=== PATIENT | female | born 1985 | race Caucasian/White ===

== ENCOUNTER 2016-12-23 16:20 | Emergency (ER) | payer OTHER ==
[~2016-12-23] VITALS: Ht 162.6 cm; Wt 108.9 kg
[~2016-12-23 16:20] MED LIST: AMOXICILLIN500 M1 PO; AMOXIL500 MG PO; BACTRIM DS 8001 TAB PO; LOTRIMIN ULTRA12 GM TOP; NICOTINE21 MG/24 H TOP; NORCO 325 MG-51 TAB PO; PERCOCET 325 MG-5 MG PO; PERCOCET 325 MG1 TA2 PO; TYLENOL COLD MU PO
[2016-12-23 16:30] VITALS: BP 140/86
[2016-12-23 16:56] LABS: ABSOLUTE BASOPHIL COUNT 0.1 /CUMM (0.0-0.2); ABSOLUTE EOSINOPHIL COUNT 0.6 /CUMM (0.0-0.7); ABSOLUTE MONOCYTE COUNT 0.7 /CUMM (0.10-0.60); EOSINOPHIL % 5.6 % (0-5); GRANULOCYTE % 58.1 % (42.2-75.2); HEMATOCRIT 42.4 % (37-47); MEAN CORPUSCULAR HGB 31.7 PG (27.0-31.0); MEAN CORPUSCULAR HGB CONC 35.6 G/DL (33.0-37.0); MEAN PLATELET VOLUME 8.4 FL (7.4-10.4); PLATELET COUNT 291 /CUMM (130-400); RBC DISTRIBUTION WIDTH 12.7 % (11.5-14.5); RED BLOOD CELL CT 4.76 /CUMM (4.20-5.40); WHITE BLOOD CELL COUNT 10.4 /CUMM (4.8-10.8)
--- NOTE | 2016-12-23 17:17 | RADIOLOGY REPORT ---
EXAMINATION: XR CHEST CLINICAL INFORMATION: Heart palpitations. COMPARISON: Chest x-ray 06/19/2014 TECHNIQUE: 2 views of the chest were obtained. FINDINGS: No significant abnormality is noted involving the heart, lungs, mediastinum, bony thorax or soft tissues. IMPRESSION: Unremarkable examination.
--- NOTE | 2016-12-23 19:12 | ED CARDIAC/CP/PALPITATIONS ---
History of Present Illness General Chief Complaint: General Adult Stated Complaint: PT STATES HEART SOMETIMES FEELS LIKE IT IS RACING Source: patient Exam Limitations: no limitations Vital Signs & Intake/Output Vital Signs & Intake/Output Vital Signs Date Time Temp Pulse Resp B/P Pulse O2 O2 Flow FiO2 Ox Delivery Rate 12/23 1805 Room Air 12/23 1630 99.1 98 20 140/86 99 Room Air Room Air Allergies Coded Allergies: NO KNOWN ALLERGIES (04/07/11) Reconcile Medications No Known Home Medications Triage Note: PT TO ED WITH C/O "SOMETIMES I FEEL LIKE MY HEART IS RACING, LAST A COUPLE OF MINUTES". PT STATING "IT HAPPENED A COUPLE OF TIMES IN THE LAST WEEK OR SO. Triage Nurses Notes Reviewed? yes : No Patient currently breastfeeds: No HPI: Ms. Goncalves is a 31 yo female w/ PMH of pneumonia obesity presenting to the emergency department for palpitations patient states that the palpitations have been ongoing for the past week. Patient denies any chest pain. She does endorse some shortness of breath but none with exertion. His increased stress lately and she feels this might be worsening over the past few months. She has self diagnosed herself with anxiety. She denies any fevers or chills. No dizzines, nausea, vomiting, diarrhea or abdominal pain. (JUANA MEADOWS MD) Past History Travel History Traveled to [place] past 21 day No Medical History Any Pertinent Medical History? 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 No (JUANA MEADOWS MD) Review of Systems Review of Systems Constitutional: Reports: see HPI. Comments Review of systems: See HPI, All other systems negative. Constitutional: no chills fever or weight loss HEENT: No visual changes, no sore throat, no congestion Cardiovascular: No chest pain, palpitation, orthopnea or ankle swelling Skin: no jaundice, no rashes. No lacerations. Respiratory: No dyspnea, cough, sputum or hemoptysis GI: No nausea, no vomiting : No dysuria, No hematuria Musculoskeletal: no back pain, no neck pain Neurologic: No numbness no confusion Psych: No stress anxiety or depression Heme/endocrine: No bruising, no bleeding, no polyuria or polydipsia Immunology: No splenectomy. (JUANA MEADOWS MD) Physical Exam Physical Exam Cardiovascular: regular rate/rhythm Comments: Well-developed well-nourished person in no acute distress HEENT: Normal EENT exam, extraocular motion intact, no nystagmus. Pupils equally round and reactive to light and accommodation. Nose is atraumatic. External auditory canal and Tympanic membranes clear. Pharynx normal. No swelling or edema. Neck: Supple, no lymphadenopathy, normal range of motion without pain or tenderness Back: Nontender, no CVA tenderness. Full range of motion Cardiovascular: Regular rate and rhythms no murmurs rubs or gallops, normal JVP Respiratory: Chest nontender. No respiratory distress.breath sounds clear to auscultation bilaterally Abdomen: Soft, nontender nondistended, no appreciable organomegaly. Normal bowel sounds. No ascites Extremity: No edema, no calf tenderness to palpation, normal and equal pulses. Neuro: Alert oriented x3, motor sensory normal, cranial nerves II through XII grossly intact. Skin: No appreciable rash on exposed skin, skin is warm and dry. Psych: Mood and affect is normal, memory and judgment is normal. Core Measures ACS in differential dx? Yes ASA ordered for poss ACS? No-ACS ruled out Severe Sepsis Present: No Septic Shock Present: No (JUANA MEADOWS MD) Progress Differential Diagnosis: AMI, CHF/pulm edema, hyperkalemia, hypovolemia, hyperthyroid, hyperventilation, pneumonia, respiratory failure, unstable angina, V-fib/V-Tach, WPW syndrome Plan of Care: Orders Procedure Date/time Status Add-on Test (ER Only) 12/23 1748 Active D-DIMER 12/23 1645 Complete TROPONIN LEVEL 12/23 1634 Complete COMPREHENSIVE METABOLIC PANEL 12/23 1634 Complete CBC WITHOUT DIFFERENTIAL 12/23 1634 Complete EKG 12/23 1633 Active Laboratory Tests 12/23/16 1645: Anion Gap 10, Estimated GFR > 60, BUN/Creatinine Ratio 14.3, Glucose 90, Calcium 9.3, Total Bilirubin 0.6, AST 24, ALT 52, Alkaline Phosphatase 81, Troponin I < 0.01, Total Protein 7.1, Albumin 3.9, Globulin 3.2, Albumin/Globulin Ratio 1.2, D-Dimer < 200, CBC w Diff NO MAN DIFF REQ, RBC 4.76, MCV 89.0, MCH 31.7 H, RDW 12.7, MPV 8.4, Gran % 58.1, Lymphocytes % 28.9, Monocytes % 6.4, Eosinophils % 5.6 H, Basophils % 1.0, Absolute Granulocytes 6.0, Absolute Lymphocytes 3.0, Absolute Monocytes 0.7 H, Absolute Eosinophils 0.6, Absolute Basophils 0.1, PUBS MCHC 35.6 Patient is a 31-year-old female with past medical history of obesity and pneumonia. Here today with increased palpitations. Vitals show heart rate of 98 with temperature of 99 1. Normal blood pressure 140/86. Patient is otherwise well-appearing. EKG is within normal limits normal sinus rhythm at a rate of 94. No evidence of EKG changes or acute ischemia. Unlikely ACS given patient's age and clinical presentation. This is likely related to anxiety as the patient does states she's had increased stress over the past few weeks. We will obtain basic labs to assess for possible electrolyte abnormality. Will obtain chest x-ray to assess for volume overload and overall cardiac size. Will obtain one screening troponin however it is unlikely that this episode of palpitations has been ongoing for 3 weeks is related to an acute OK. Therefore there is no indication to repeat troponin. Patient is chest pain-free at this point in time and has been over the past few weeks. Labs essentially unremarkable. Negative troponin. This is likely an anxiety component. Patient recommended to drink plenty of fluids and stay well hydrated to prevent dehydration as a possible cause of her tachycardia. Patient amenable to plan. Will follow up with her primary care doctor as an outpatient. Discussed family history patient has no significant family history of acute MIs or at an early age. (DORI GREEN,JUANA) Diagnostic Imaging: Viewed by Me: Radiology Read. Discussed w/RAD: Radiology Read. CXR Impression: no acute abnormality, no infiltrates, normal size heart, normal mediastinum Initial ED EKG: normal axis, normal intervals, normal p-waves, normal QRS complex, normal sinus rhythm, no ST T wave changes (JUANA MEADOWS MD) Departure Departure Time of Disposition: 1909 Disposition: HOME OR SELF CARE Condition: Stable Clinical Impression Primary Impression: Palpitations Referrals: UNKNOWN (PCP/Family) Additional Instructions: Follow-up with your primary care doctor as needed for palpitations. It may be helpful for you to have a stress test done as an outpatient. Please stop smoking as that will help to decrease your shortness of breath. Departure Forms: Customer Survey General Discharge Information Prescriptions: Current Visit Scripts No Known Home Medications (JUANA MEADOWS MD) Resident Co-Sign Statement Statement: ED Attending supervision documentation- [] I saw and evaluated the patient. I have also reviewed all the pertinent lab results and diagnostic results. I agree with the findings and the plan of care as documented in the Resident's documentation. [X] I have reviewed the ED Record and agree with the Resident's documentation. [] Additions or exceptions (if any) to the Resident's note and plan are summarized below: [] (BRAYAN HARDY DO) Critical Care Note Critical Care Note Critical Care Time: non-applicable (JUANA MEADOWS MD)
== END 2016-12-23 19:14 ==
LOC: ERH 16:20
PROVIDERS: Emergency Medicine
DX: R00.2 Palpitations (principal)
CPT/HCPCS: 93005; 93010

== ENCOUNTER 2017-03-01 09:43 | Emergency (ER) | payer OTHER ==
[~2017-03-01] VITALS: Ht 162.6 cm; Wt 104.3 kg
--- NOTE | 2017-03-01 10:01 | ED GI/GU/ABDOMINAL COMPLAINT ---
History of Present Illness General Chief Complaint: Abdominal Pain/Flank Pain Stated Complaint: LUQ ABD PAIN, RADIATING TO BACK Source: patient Exam Limitations: no limitations Vital Signs & Intake/Output Vital Signs & Intake/Output Vital Signs Date Time Temp Pulse Resp B/P B/P Pulse O2 O2 Flow FiO2 Mean Ox Delivery Rate 03/01 1316 98.3 94 15 110/74 100 Room Air 03/01 1034 100 Room Air 03/01 0949 98.3 96 20 106/69 98 Allergies Coded Allergies: NO KNOWN ALLERGIES (04/07/11) Reconcile Medications No Known Home Medications Triage Note: PT C/O LUQ PAIN X 2 WEEKS. PT STATES SHE THOUGHT IT WAS GAS. PT STATES SHE HAS ISSUES WITH HER GALLBLADDER. PT DENIES N/V BUT STATES + DIARRHEA Triage Nurses Notes Reviewed? yes ? N Is pt currently ? No Duration: waxing and waning (FEW MONTHS) Timing: recent history Location: left flank Radiation: back Associated Symptoms: NAUSEA, BLOOD IN URINE HPI: 31 year female presents to [facility] ER for chief complaint of left flank pain on and off for the past few months. Pain radiates to the left back. Patien reports mild associated nausea, no vomiting. Denies any fever or chills. Admits to blood in urine although her last menstrual period ended one week ago. Denies vaginal discharge or chance for . No chest pain or shortness of breath. Denies any rash or trauma. No history of similar symptoms in the past before. Past History Travel History Traveled to [place] past 21 day No Medical History Any Pertinent Medical History? see below for history Neurological: NONE EENT: NONE Cardiovascular: NONE Respiratory: pneumonia Gastrointestinal: NONE Hepatic: NONE Renal: NONE Musculoskeletal: NONE Psychiatric: NONE Endocrine: NONE Blood Disorders: NONE Cancer(s): NONE AUTO HIKER/Reproductive: NONE Other Medical Hx: Obesity Surgical History Surgical History: cholecystectomy, Psychosocial History What is your primary language Puerto Rican Tobacco Use: Current Daily Use Daily Tobacco Use Amount/Type: => 5 Cigarettes daily ETOH Use: occasional use Illicit Drug Use: denies illicit drug use Family History Hx Contributory? No Review of Systems Review of Systems Constitutional: Denies: chills, fever. EENTM: Reports: no symptoms. Respiratory: Reports: no symptoms. Cardiovascular: Reports: no symptoms. GI: Reports: abdominal pain. Genitourinary: Reports: no symptoms. Musculoskeletal: Reports: back pain. Skin: Reports: no symptoms. Neurological/Psychological: Reports: no symptoms. Hematologic/Endocrine: Denies: bruising, bleeding, polyuria, polydipsia. Immunologic/Allergic: Reports: no symptoms. All Other Systems: Reviewed and Negative Physical Exam Physical Exam General Appearance: well developed/nourished, alert, awake, anxious, mild distress, obese Head: atraumatic, normal appearance Eyes: Bilateral: normal appearance, PERRL, EOMI. Ears, Nose, Throat, Mouth: hearing grossly normal, moist mucous membrane Neck: normal inspection, supple, full range of motion Respiratory: normal breath sounds, chest non-tender, no respiratory distress Cardiovascular: regular rate/rhythm Peripheral Pulses: 2+ radial (R), 2+ radial (L) Gastrointestinal: normal bowel sounds, soft, tenderness (mild left flank) Back: normal inspection, normal range of motion Extremities: normal range of motion Neurologic/Psych: no motor/sensory deficits, awake, alert, oriented x 3 Skin: intact, normal color, warm/dry Core Measures ACS in differential dx? No Severe Sepsis Present: No Septic Shock Present: No Progress Differential Diagnosis: kidney stone, pancreatitis, PUD/GERD, UTI/pyelo Plan of Care: Orders Procedure Date/time Status URINE 03/01 1020 Complete URINALYSIS 03/01 1020 Complete EKG 03/01 1018 Active LIPASE 03/01 1013 Complete D-DIMER 03/01 1013 Complete COMPREHENSIVE METABOLIC PANEL 03/01 1013 Complete CBC WITHOUT DIFFERENTIAL 03/01 1013 Complete Laboratory Tests 03/01/ 1036: Anion Gap 10, Estimated GFR > 60, BUN/Creatinine Ratio 14.3, Glucose 84, Calcium 9.5, Total Bilirubin 0.7, AST 26, ALT 48, Alkaline Phosphatase 80, Total Protein 7.2, Albumin 4.0, Globulin 3.2, Albumin/Globulin Ratio 1.3, Lipase 121, D-Dimer High Sensitivty < 200, CBC w Diff NO MAN DIFF REQ, RBC 4.80, MCV 91.2, MCH 30.9, RDW 12.6, MPV 8.1, Gran % 61.9, Lymphocytes % 27.2, Monocytes % 5.6, Eosinophils % 5.0, Basophils % 0.3, Absolute Granulocytes 7.9 H, Absolute Lymphocytes 3.5 H, Absolute Monocytes 0.7 H, Absolute Eosinophils 0.6, Absolute Basophils 0, PUBS MCHC 33.8, Urinalysis LIGHT H, Urine Color YEL, Urine Clarity CLEAR, Urine pH 6.0, Ur Specific [place] 1.025, Urine Protein NEG, Urine Ketones NEG, Urine Nitrite NEG, Urine Bilirubin NEG, Urine Urobilinogen 0.2, Ur Leukocyte Esterase NEG, Ur Microscopic SEDIMENT EXAMINED, Urine RBC 3-5, Urine WBC 1-3 H, Ur Epithelial Cells FEW, Urine Bacteria RARE H, Urine Mucus FEW, Urine Hemoglobin LARGE H, Urine Glucose NEG, Urine Test NEGATIVE Diagnostic Imaging: Viewed by Me: Ultrasound. Discussed w/RAD: Ultrasound. Initial ED EKG: NSR Prior EKG: unchanged Comments: PATIENT: JM JOSE PRESENT AGE: 31 PATIENT ACCOUNT NO: [id number] : 86 LOCATION: [facility] ORDERING PHYSICIAN: DOROTEO SHAY MD SERVICE DATE: 03/01/17 EXAM TYPE: US - US-RENAL/KIDNEY EXAMINATION: US RETROPERITONEAL COMPLETE (RENAL) CLINICAL INFORMATION: Left-sided flank pain. Hematuria. Evaluate for kidney stone. COMPARISON: CT scan of the abdomen and pelvis dated 09/27/2013. TECHNIQUE: Real-time imaging of the kidneys and bladder. FINDINGS: RIGHT KIDNEY: 10.4 x 4.6 x 4.5 cm (SAG x AP x TRV). The kidney is normal in size, contour, and echogenicity. Renal cortical thickness is normal. No calculi or focal parenchymal lesions. No hydronephrosis. LEFT KIDNEY: 11.2 x 5.4 x 5.1 cm (SAG x AP x TRV). The kidney is normal in size, contour, and echogenicity. Renal cortical thickness is normal. No focal parenchymal lesions. There is a 0.5 x 0.3 x 0.3 cm echogenic nonobstructing mid left renal calcification. No hydronephrosis. BLADDER: Well-distended and normal. Bilateral ureteral jets are demonstrated. IMPRESSION: 1. 0.5 x 0.3 x 0.3 cm mid left renal nonobstructing calcification. 2. Otherwise unremarkable exam. DICTATED BY: CRYSTAL COLLAZO MD DATE/TIME DICTATED:03/01/17 1240 LOOPER FIXER:FABIOLA DATE/TIME TRANSCRIBED:03/01/17 / 1240 CONFIDENTIAL, DO NOT COPY WITHOUT APPROPRIATE AUTHORIZATION. <Electronically signed in Other Vendor System> SIGNED BY: CRYSTAL COLLAZO MD 1241 Departure Departure Time of Disposition: 1310 Disposition: HOME OR SELF CARE Condition: Stable Clinical Impression Primary Impression: Renal stone Referrals: HOSEA GREEN,BRYCE UNKNOWN (PCP/Family) Additional Instructions: Please follow up with urology specialist listed. Take Motrin or Tylenol as needed for pain. Return for any worsening symptoms. Departure Forms: Customer Survey General Discharge Information Prescriptions: Current Visit Scripts No Known Home Medications
[2017-03-01 10:54] LABS: ABSOLUTE BASOPHIL COUNT 0 /CUMM (0.0-0.2); ABSOLUTE EOSINOPHIL COUNT 0.6 /CUMM (0.0-0.7); ABSOLUTE GRANULOCYTE CT 7.9 /CUMM (1.4-6.5); ABSOLUTE LYMPH COUNT 3.5 /CUMM (1.2-3.4); ABSOLUTE MONOCYTE COUNT 0.7 /CUMM (0.10-0.60); BASOPHIL % 0.3 % (0.0-2.0); GRANULOCYTE % 61.9 % (42.2-75.2); HEMATOCRIT 43.8 % (37-47); MEAN CORPUSCULAR HGB 30.9 PG (27.0-31.0); MEAN CORPUSCULAR HGB CONC 33.8 G/DL (33.0-37.0); MEAN CORPUSCULAR VOLUME 91.2 FL (81.0-99.0); MEAN PLATELET VOLUME 8.1 FL (7.4-10.4); PLATELET COUNT 310 /CUMM (130-400); RBC DISTRIBUTION WIDTH 12.6 % (11.5-14.5); WHITE BLOOD CELL COUNT 12.7 /CUMM (4.8-10.8)
--- NOTE | 2017-03-01 12:45 | ULTRASOUND REPORT ---
EXAMINATION: US RETROPERITONEAL COMPLETE (RENAL) CLINICAL INFORMATION: Left-sided flank pain. Hematuria. Evaluate for kidney stone. COMPARISON: CT scan of the abdomen and pelvis dated 09/27/2013. TECHNIQUE: Real-time imaging of the kidneys and bladder. FINDINGS: RIGHT KIDNEY: 10.4 x 4.6 x 4.5 cm (SAG x AP x TRV). The kidney is normal in size, contour, and echogenicity. Renal cortical thickness is normal. No calculi or focal parenchymal lesions. No hydronephrosis. LEFT KIDNEY: 11.2 x 5.4 x 5.1 cm (SAG x AP x TRV). The kidney is normal in size, contour, and echogenicity. Renal cortical thickness is normal. No focal parenchymal lesions. There is a 0.5 x 0.3 x 0.3 cm echogenic nonobstructing mid left renal calcification. No hydronephrosis. BLADDER: Well-distended and normal. Bilateral ureteral jets are demonstrated. IMPRESSION: 1. 0.5 x 0.3 x 0.3 cm mid left renal nonobstructing calcification. 2. Otherwise unremarkable exam.
[2017-03-01 13:16] VITALS: BP 110/74
== END 2017-03-01 13:16 ==
LOC: ERH 09:43
PROVIDERS: Emergency Medicine
DX: N20.0 Calculus of kidney (principal)
CPT/HCPCS: 76775; 81001; 81025; 93005; 93010

== ENCOUNTER → 2017-03-22 | Day surgery (SDC) | payer OTHER ==
[~2017-03-22] VITALS: Ht 162.6 cm; Wt 108.9 kg
--- NOTE | 2017-03-22 14:36 | Operative Report ---
Operative/Inv Procedure Report Surgery Date: 03/22/17 Name of Procedure: left ESWL. fluoroscopy Pre-Operative Diagnosis: left stone with colic Post-Operative Diagnosis: same Estimated Blood Loss: none Surgeon/Package Delivery Room Service Runner: BRYCE JC MD Anesthesia: moderate sedation Complications: none Operative/Procedure Note Note: The patient was taken to the operating room and placed on the ESWL table in supine position. With the patient awake and participating, timeout was performed to confirm correct identity, procedure, laterality, anesthesia, and other pertinent ankur-operative information. After adequate anesthesia, the patient was positioned so that the patient's left flank was positioned over the table cut-out, overlying the dome of the treatment head. Once the patient was adequately sedated, fluoroscopy, as well as Renal ultrasound was used to locate the LEFT renal stone. Renal US confirmed the presence of the stone which measured it to be approximately 6 mm upper pole stone. The stone was visible with fluoroscopy. Renal US revealed, no hydronephrosis, and no solid tumor, and presence of the stone. The position of the stone was optimized by using fluoroscopy in AP and oblique views;placing the stone within the ESWL c-arm crosshairs. Once the stone's position was optimized, the LEFT renal E.S.W.L. was initiated at low energy level. After noting the patient's tolerance to the shockwaves, the intensitiy was ramped up to maximum level. At the end of the procedure, the left renal stone had dissintegrated. Of note, a total of 2500 shockwaves were delivered to the stone. The patient tolerated the ESWL procedures well, was awakened, then taken to recovery in satisfactory condition via stretcher. The patient was dischared home with pain medications, diet orders, and intructions to catch fragments by straining the urine. The patient to to have follow-up renal ultrasound and KUB in 1 to 2 weeks, prior to follow-up visit in my office. He will then proceed with metabolic stone work-up. CC: BRYCE JC MD
== END ==
LOC: STS 02:10
DX: N20.0 Calculus of kidney (principal); N23 Unspecified renal colic; F17.200 Nicotine dependence, unspecified, uncomplicated
CPT/HCPCS: 81025; J2250

== ENCOUNTER 2018-03-25 00:14 | Emergency (ER) | payer OTHER ==
[~2018-03-25] VITALS: Ht 162.6 cm; Wt 104.3 kg
[~2018-03-25 00:14] MED LIST changes: +AZITHROMYCIN250 M1 PO; +BACTRIM DS TAB1 EACH PO; +CHERATUSSIN AC118 M1 PO; +CLEOCIN HCL300 M1 PO; +KEFLEX500 M1 PO; +PROAIR HFA8.5 GM INH; +TAMIFLU75 M1 PO; +TRAMADOL HCL50 M1 PO
[2018-03-25 00:32] VITALS: BP 136/76
--- NOTE | 2018-03-25 01:04 | ED GENERAL ADULT ---
History of Present Illness General Chief Complaint: General Adult Stated Complaint: "ABCESS UNDER RT UNDER ARM GROWING AND PAINFULL" Source: patient, old records Exam Limitations: no limitations Vital Signs & Intake/Output Vital Signs & Intake/Output ED Intake and Output 03/26 0000 03/25 1200 Intake Total Output Total Balance Patient 230 lb Weight Allergies Coded Allergies: NO KNOWN ALLERGIES (04/07/11) Reconcile Medications Cephalexin (Keflex) 500 MG CAPSULE 1 CAP PO TID ABSCESS Hydrocodone/Acetaminophen (Epworth 5-325 Tablet) 5 MG-325 MG TABLET 1 TAB PO Q4- 6 PRN PRN SEVERE PAIN Sulfamethoxazole/Trimethoprim (Bactrim Ds Tablet) 800 MG-160 MG TABLET 1 TAB PO BID ABSCESS Sulfamethoxazole/Trimethoprim (Bactrim Ds Tablet) 800 MG-160 MG TABLET 1 TAB PO BID ABSCESS Tramadol HCl 50 MG TABLET 1 TAB PO Q6P PRN PAIN Triage Note: 32YO FEMALE TO TRIAGE FROM HOME W/CO ABCESS R UNDERARM HAS RETURNED. STARTTE SHE WAS HERE LAST WEEK, HAD ABCESS LANCED AND IS TAKING ANTIBIOTICS. Triage Nurses Notes Reviewed? yes Onset: Abrupt Duration: week(s): (1-2), constant, continues in ED, getting worse Timing: recent history Injury Environment: home Severity: moderate, severe Severity Numbers: 8 No Modifying Factors: none Modifying Factors: Worsens With: movement. : No Patient currently breastfeeds: No HPI: 32 -year-old female presents for reevaluation of a right axillary abscess. Patient was here about one week ago for incision and drainage of multiple abscesses in her right axilla. She was placed on antibiotics. She reports that one of the abscesses has reoccurred and is getting larger and more painful. This been no additional discharge. She is taking both antibiotics as directed no fevers. (Maico Beckford) Past History Travel History Traveled to [place] past 21 day No Medical History Any Pertinent Medical History? 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 No (Maico Beckford) Review of Systems Review of Systems Constitutional: Reports: no symptoms. EENTM: Reports: no symptoms. Respiratory: Reports: no symptoms. Cardiovascular: Reports: no symptoms. GI: Reports: no symptoms. Genitourinary: Reports: no symptoms. Musculoskeletal: Reports: no symptoms. Skin: Reports: see HPI, cysts (abscess), erythema. Neurological/Psychological: Reports: no symptoms. Hematologic/Endocrine: Reports: no symptoms. Immunologic/Allergic: Reports: no symptoms. All Other Systems: Reviewed and Negative (Maico Beckford) Physical Exam Physical Exam General Appearance: well developed/nourished, no apparent distress, alert, awake Head: atraumatic, normal appearance Eyes: Bilateral: normal appearance, EOMI. Ears, Nose, Throat: hearing grossly normal Neck: normal inspection, supple, full range of motion Respiratory: no respiratory distress Peripheral Pulses: 2+ radial (R), 2+ radial (L) Back: normal inspection, normal range of motion Extremities: right axilla there is a 1.5 cm diameter area of erythema and focal fluctuance with surrounding induration present in the right axilla. No lymphadenopathy no other focal fluctuant areas. Multiple other areas of induration. No lymphatic streaking for range of motion of the right upper trauma is intact neurovascular supply is intact no lymphatic streaking Neurologic/Psych: no motor/sensory deficits, awake, alert, oriented x 3, normal gait, normal mood/affect Skin: intact, normal color, warm/dry Core Measures ACS in differential dx? No CVA/TIA Diagnosis: No Sepsis Present: No Sepsis Focused Exam Completed? No (Maico Beckford) Progress Differential Diagnoses I considered the following diagnoses in my evaluation of the patient: [Abscess, cellulitis, lymphadenopathy, lymphoma, sebaceous cyst] Plan of Care: Patient is here with an abscess. It was drained last week but has now reoccurred. The area was clean with Betadine 1% lidocaine without epi was used for local pain control. 11 blade was used to open the area of focal fluctuance. Purulent discharge expressed. Last culture was polymicrobial. Abscess pocket was flushed and packed. Sterile dressing applied. Discussed wound care procedures. Antibiotics were extended for another week. Return in 2 days for packing removal and dressing change return sooner with any concerns. Warm compresses. Tylenol or ibuprofen for pain and Epworth for severe pain. Patient was also given a referral to general surgery for definitive management. Discussed return precautions patient agrees Initial ED EKG: none (Maico Beckford) Departure Departure Disposition: HOME OR SELF CARE Condition: Stable Clinical Impression Primary Impression: Abscess Referrals: Mary Ellen Hyde MD (PCP/Family) Victor M GREEN,[place] Additional Instructions: FINISH ANTIBIOTICS FOR FULL COURSE. TYLENOL/IBUPROFNE FOR PAIN. VICODIN FOR SEVERE PAIN. RETURN IN 2 DAYS FOR PACKING REMOVAL/DRESSING CHANGE RETURN SOONER WITH ANY CONCERNS. YOU ARE ALSO BEING REFERRED TO A GENERAL SURGEON. Departure Forms: Customer Survey General Discharge Information Prescriptions: Current Visit Scripts Sulfamethoxazole/Trimethoprim (Bactrim Ds Tablet) 1 TAB PO BID #14 TAB Cephalexin (Keflex) 1 CAP PO TID #21 CAP Hydrocodone/Acetaminophen (Epworth 5-325 Tablet) 1 TAB PO Q4-6 PRN PRN SEVERE PAIN #10 TAB (Maico Beckford) PA/POTATO SPOTTER Co-Sign Statement Statement: ED Attending supervision documentation- [] I saw and evaluated the patient. I have also reviewed all the pertinent lab results and diagnostic results. I agree with the findings and the plan of care as documented in the PA's/POTATO SPOTTER's documentation. [x] I have reviewed the ED Record and agree with the PA's/POTATO SPOTTER's documentation. [] Additions or exceptions (if any) to the PAs/POTATO SPOTTER's note and plan are summarized below: [] (Livan Motta DO) Procedures Incision and Drainage Site: right axilla Blade Size: 11 I & D Procedure: Yes: betadine prep, sterile drapes applied, sterile dressing applied, wick placed. (Maico Beckford) Critical Care Note Critical Care Note Critical Care Time: non-applicable (Maico Beckford) ED Attending Observation Initial Observation Note: I have seen and personally examined JM JOSE on 03/26/18 at 1041. I agree with the current emergency department documentation. The disposition (admission or discharge) is uncertain at this time, she needs a period of observation for the following reason(s): The ED Nurse caring for this patient has been personally informed as to what the patient is being observed for. (Maico Beckford)
[2018-03-25] MEDS ORDERED: KEFLEX500 M1 PO (01:06)
[2018-03-25] MEDS ORDERED: NORCO 5-325 TA1 EACH PO (01:06)
[2018-03-25] MEDS ORDERED: BACTRIM DS TAB1 EACH PO (01:06)
== END 2018-03-25 01:21 ==
LOC: ERH 00:14
DX: L02.411 Cutaneous abscess of right axilla (principal)
CPT/HCPCS: J2001

== ENCOUNTER 2018-03-27 14:51 | Emergency (ER) | payer OTHER ==
[~2018-03-27] VITALS: Ht 162.6 cm; Wt 104.3 kg
[~2018-03-27 14:51] MED LIST changes: +NORCO 5-325 TA1 EACH PO
[2018-03-27 15:46] VITALS: BP 128/88
--- NOTE | 2018-03-27 15:46 | ED SKIN/ALLERGY COMPLAINT ---
History of Present Illness General Chief Complaint: Suture Removal/Wound Recheck Stated Complaint: WOUND CHECK R ARMPIT Source: patient Exam Limitations: no limitations Vital Signs & Intake/Output Vital Signs & Intake/Output Vital Signs Date Time Temp Pulse Resp B/P B/P Pulse O2 O2 Flow FiO2 Mean Ox Delivery Rate 03/27 1550 98 03/27 1546 98.7 100 16 128/88 98 Room Air Allergies Coded Allergies: NO KNOWN ALLERGIES (04/07/11) Reconcile Medications Cephalexin (Keflex) 500 MG CAPSULE 1 CAP PO TID ABSCESS Hydrocodone/Acetaminophen ([place] 5-325 Tablet) 5 MG-325 MG TABLET 1 TAB PO Q4- 6 PRN PRN SEVERE PAIN Sulfamethoxazole/Trimethoprim (Bactrim Ds Tablet) 800 MG-160 MG TABLET 1 TAB PO BID ABSCESS Sulfamethoxazole/Trimethoprim (Bactrim Ds Tablet) 800 MG-160 MG TABLET 1 TAB PO BID ABSCESS Tramadol HCl 50 MG TABLET 1 TAB PO Q6P PRN PAIN Triage Nurses Notes Reviewed? yes Onset: Gradual Duration: day(s): Timing: recent history Severity: moderate Location: right axilla HPI: 32-year-old. Presents emergency department for abscess check. Patient was seen 2 days ago and had an abscess drained and packing placed. Patient is taking Bactrim and Keflex antibiotics. Patient is kept current dressing on since packing days ago. She believes there has been some drainage there is no appearance of bandage. She denies fevers. Past History Travel History Traveled to [place] past 21 day No Medical History Any Pertinent Medical History? 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 No Review of Systems Review of Systems Constitutional: Reports: no symptoms. EENTM: Reports: no symptoms. Respiratory: Reports: no symptoms. Cardiovascular: Reports: no symptoms. GI: Reports: no symptoms. Genitourinary: Reports: no symptoms. Musculoskeletal: Reports: no symptoms. Skin: Reports: see HPI. Neurological/Psychological: Reports: no symptoms. Hematologic/Endocrine: Reports: no symptoms. Immunologic/Allergic: Reports: no symptoms. All Other Systems: Reviewed and Negative Physical Exam Physical Exam General Appearance: well developed/nourished, no apparent distress, alert, awake Head: atraumatic, normal appearance Eyes: Bilateral: normal appearance. Ears, Nose, Throat: hearing grossly normal Neck: normal inspection, supple, full range of motion Respiratory: no respiratory distress Back: normal inspection, normal range of motion Extremities: normal inspection, normal range of motion Neurologic/Psych: awake, alert, oriented x 3 Skin: right axilla: 1x1cm area of erythema with packing material in place Progress Differential Diagnosis: abscess/cellulitis, allergic reaction, contact dermatitis, drug reaction, urticaria Plan of Care: Packing material was removed, no active purulent drainage from abscess at this time. There is very small area of erythema still present however no significant induration, no fluctuance. There is no necessity for further I&D or packing at this time. Patient educated on hygiene and warm compresses. She will continue antibiotics. Patient agrees with plan of care. Departure Departure Disposition: HOME OR SELF CARE Condition: Stable Clinical Impression Primary Impression: Abscess re-check Referrals: Mary Ellen GREEN,Mary Ellen (PCP/Family) Additional Instructions: Apply warm compress twice daily. Rince area with soap and water. Continue antibiotics. Return if worsening symptoms or concerns. Departure Forms: Customer Survey General Discharge Information
== END 2018-03-27 15:56 ==
LOC: ERH 14:51
DX: Z48.00 Encounter for change or removal of nonsurgical wound dressing (principal)

== ENCOUNTER → 2018-04-21 | Day surgery (SDC) | payer OTHER ==
[~2018-04-21] VITALS: Ht 162.6 cm; Wt 105.7 kg
--- NOTE | 2018-04-21 13:29 | Operative Report ---
Operative/Inv Procedure Report Surgery Date: 04/21/18 Name of Procedure: 1. Excision bilateral hidradenitis, axillary 2. Excision hidradenitis right breast, inframammary Pre-Operative Diagnosis: Hidradenitis Post-Operative Diagnosis: Same Estimated Blood Loss: scant Surgeon/Documentation Consultant: Tomasz Dow MD Anesthesia: laryngeal mask airway Drains: [place] bilateral axilla Specimens: Skin and soft tissue Operative/Procedure Note Note: After consent patient brought to the operating was supine. General anesthesia obtained in her axilla and bilateral breasts were prepped and draped. Began on the right side inframammary disease. Medially along the crease there was an area of inflammatory changes. An ellipse of skin was taken, 2 x 6 cm. Subcutaneous tissues dissected with cautery and the abscess cavity excised en bloc. Wound was irrigated with saline and closed primarily with running 4-0 nylon. Next the left axillary region was evaluated. There were numerous areas of chronic abscess formation. Ellipse of skin by 2 cm was taken sharply soft tissue was excised with cautery passed off the field. Wound was irrigated with saline and closed with 4-0 nylon. Ana drain was placed the corner of the incision to assist in drainage. The right axillary region there was significant amount of chronic inflammatory changes. Similar ellipse of skin was taken to include a separate area extending onto the upper medial arm. Skin was then closed primarily in a similar fashion, the result of which ended T shaped incision closure. Ana drain placed similarly. Sterile dressings and bacitracin applied. CC: Mary Ellen GREEN,Mary Ellen
== END ==
LOC: STS 02:09
DX: L73.2 Hidradenitis suppurativa (principal); E66.01 Morbid (severe) obesity due to excess calories; Z68.41 Body mass index [BMI] 40.0-44.9, adult; F17.200 Nicotine dependence, unspecified, uncomplicated
CPT/HCPCS: 81025; J0131; J2250